=== PATIENT | male | born 1950 | race Caucasian/White ===

== ENCOUNTER → 2016-05-01 07:31 | Outpatient (CLI) | payer MEDICARE ==
[2010-03-08 07:22] VITALS: BMI 30.8
== END | disposition home or self-care (01) ==
LOC: D.CT 07:31
DX: R10.9 Unspecified abdominal pain (principal); R91.8 Other nonspecific abnormal finding of lung field; Z12.2 Encounter for screening for malignant neoplasm of respiratory organs

== ENCOUNTER → 2016-05-10 09:23 | Outpatient (CLI) | payer MEDICARE ==
[2010-03-08 07:22] VITALS: BMI 30.8
[2016-05-10 10:08] LABS: CREATININE - SERUM 1.1 mg/dL (0.6-1.3)
== END | disposition home or self-care (01) ==
LOC: D.CT 09:23
PROVIDERS: Family Medicine
DX: R93.5 Abnormal findings on diagnostic imaging of other abdominal regions, including retroperitoneum (principal)

== ENCOUNTER 2017-08-29 07:10 | Day surgery (SDC) | payer MEDICARE ==
[~2017-08-29] VITALS: Ht 162.6 cm; Wt 90.3 kg
--- NOTE | ~2017-08-29 | OP ---
PATIENT NAME: EMILIE YAN MEDICAL RECORD: [id number] :52 LOCATION:[facility] ADMISSION DATE: SURGEON: MELQUIADES HOPPER DO DATE OF OPERATION: 08/29/2017 PROCEDURE PERFORMED: Left endoscopic carpal tunnel release. PREOPERATIVE DIAGNOSIS: Left carpal tunnel syndrome. POSTOPERATIVE DIAGNOSIS: Left carpal tunnel syndrome. INDICATIONS: Ms. Hartman is a 67-year-old male who has had bilateral hand numbness for quite some time. He is tired of dealing with it. He had a nerve conduction study that showed a distal motor latency of 5.3 on the left and 5.1 on the right. He chose to go with the left one first. Due to him being a right-handed and want to drive. I informed him that this should take care of the pain, that wakes him up at night; however, it may not completely resolve the numbness and tingling, but should get better. He was okay with that and wanted to proceed forward with the procedure. I informed of the risks and benefits including nerve damage and nerve irritation through the surgery. SURGEON: Melquiades Hopper DO DESCRIPTION OF PROCEDURE: The patient was taken to the operative suite, laid in supine position, given general anesthetic and given 2 grams of Ancef preoperatively. The left upper extremity was prepped and draped in sterile fashion after general anesthetic, timeout was performed. Everyone was in agreement of correct side, site and patient. After this was done, the Esmarch was used to exsanguinate the left upper extremity with a tourniquet above the elbow under the drapes and tourniquet was inflated to 250 mmHg and it was deflated at 10 minutes. Once the tourniquet was inflated, the incision was marked out just over the palmaris longus tendon about a centimeter just proximal to the wrist crease and the skin was incised and blunt dissection was made with Ragnell down to the carpal tunnel itself. Once the carpal tunnel was identified, the distal forearm fascia was released under direct visualization with scissors and a pickup. Then, the dilators were used to make room for the sheath for the endoscopic carpal tunnel segway device once the sheath had been entered, the transverse carpal ligament was viewed, and was seen to be the only thing in view. The median nerve was protected by the sheath. Once this was seen, the rasp was used to clean off the transverse carpal ligament and then a probe, to probe and ensure there was nothing in the ligament and then the blade was brought in to transect the ligament. Once the ligament was transected, a fat herniated down into the carpal tunnel indicating a good release of the transverse carpal ligament. The sheath, the camera, and knife had all been removed and then a Ayla retractor was placed into the wound, opened up and the transverse carpal ligament was viewed and seen to be transected completely. This was seen with loupe magnification and the median nerve was intact. The tourniquet was then let down at 10 minutes and the bleeding was all coagulated with bipolar and the incision site was closed with 5-0 Monocryl with 2 inverted interrupted stitches under the skin. Steri-Strip was placed over the wound. Adaptic, 4 x 4 was then placed on the wound. The Kerlix was then wrapped and Coban was lightly wrapped on top of that. The patient was awakened and taken to recovery. Prior to the closure, a 10 mL of 0.5% Marcaine were used to anesthetize the surgical area. Blood loss was minimal. OPERATIVE REPORT [id number] EMILIE YAN COMPLICATIONS: None. TRANSINT:[id number] Voice Confirmation ID: [id number] DOCUMENT ID: [id number] MELQUIADES HOPPER DO at 1828 CC: [id number] DICTATION DATE: 08/29/17 1242 FAMILY SERVICE ASSISTANT: 08/29/17 1455 REG [facility] [address] [place] [address]
[~2017-08-29 07:10] MED LIST: MOBIC7.5 MG PO; PROBENECID500 MG PO
[2017-08-29 07:26] LABS: HEMATOCRIT 43.5 % (42.0-54.0); HEMOGLOBIN 14.6 g/dL (13.5-17.5); MCH 34.8 pg (26.0-34.0); MCHC 33.6 g/dL (31.0-37.0); MCV 103.8 fL (80.0-100.0); MEAN PLATELET VOLUME 8.7 fL (7.4-10.4); RBC 4.19 10x6/uL (4.20-6.10); WBC 6.9 10x3/uL (4.8-10.8)
[2017-08-29 08:32] VITALS: BP 146/75; Ht 162.6 cm; Wt 90.3 kg
[2017-08-29] MEDS ORDERED: DURICEF500 MG PO (12:35)
[2017-08-29] MEDS ORDERED: PERCOCET 5-3251 TAB PO (12:35)
== END 2017-08-29 14:30 | disposition home or self-care (01) ==
LOC: D.OPS 07:10 → D.PAN 09:50 → D.OPS 11:30 → D.PAN 11:30 → D.OPS 14:30
PROVIDERS: Anesthesiology
DX: G56.02 Carpal tunnel syndrome, left upper limb (principal); Z01.812 Encounter for preprocedural laboratory examination

== ENCOUNTER 2017-10-31 07:53 | Outpatient (CLI) | payer MEDICARE ==
[~2017-10-31] VITALS: Ht 162.6 cm; Wt 92.3 kg
--- NOTE | ~2017-10-31 | HEMODYNAMI ---
PATIENT:EMILIE YAN MEDICAL RECORD: [id number] : 52 LOCATION:[facility] ADMISSION DATE: 10/31/17 Generatedon:10/31/201710:44 Patient name: EMILIE YAN Patient #: [id number] SSN: : 1950 Date of study: 10/31/2017 Page: Of Hemodynamic Procedure Report Patient Data Patient Demographics Procedure consent was obtained First Name: EMILIE Gender: Male Last Name: YURIY : 1950 [facility] Initial: SANTANA Age: 67 year(s) Patient #: [id number] Race: Unknown Additional ID: [id number] Contact details [address]: [address] [place] [address] RO[address] State: [place] City: [place] Zip code: [address] Past Medical History Allergies Allergen Reaction Date Comments Reported Other allergy 10/31/2017 Admission Admission Data Admission Date: 10/31/2017 Admission Time: 7:53 Procedure Procedure Types Cath Procedure Diagnostic Procedure LHC LHC w/Coronaries FFR/IVUS Intra-Coronary IVUS Initial Intra-Coronary IVUS Additional Sedation Charges Moderate Sedation up to 15 minutes Procedure Description Procedure Date Procedure Date: 10/31/2017 Procedure Start Time: 10:22 Procedure End Time: 10:43 Procedure Staff Name Function Delon Anderson MD Performing Physician Ruchi Busby RT Monitor Carol Ann Clemons RT Scrub Sharon Nelson RN Nurse Procedure Data Cath Procedure Fluoroscopy Diagnostic fluoroscopy Total fluoroscopy Time: 6.5 time: 6.5 min min Diagnostic fluoroscopy Total fluoroscopy dose: dose: 1052 mGy 1052 mGy Contrast Material Contrast Material Type Amount (ml) Isovue 300 109 Entry Location Entry Primary Successful Side Size Upsize Upsize Entry Closure Simon ccessful Closure Location (Fr) 1 (Fr) 2 (Fr) Remarks Device Remarks Radial Right 6 Fr Mechanical tr artery Short Compression Estimated blood loss: 10 ml Diagnostic catheters Device Type Used For End Catheter Placement DIAGNOSTIC [place] 110cm 5 Procedure Fr catheter ([id number]) Procedure Complications No complications Procedure Medications Medication Administration Route Dosage Oxygen NC 2 l/min Lidocaine 2% added to field 20 Heparin Flush Bag added to field 2 bags (1000units/500ml NS) 0.9% NaCl I.V. 100 ml/hr Versed I.V. 2 mg Fentanyl I.V. 100 mcg Versed I.V. 1 mg Fentanyl I.V. 50 mcg Radial Cocktail I.A. 1 syringe (Verapomil 2mg/Nitro 400mcg/Heparin 1500units) Versed I.V. 1 mg Fentanyl I.V. 50 mcg Versed I.V. 1 mg Versed I.V. 1 mg Hemodynamics Rest Heart Rate: 60 (bpm) Snapshots Pre Cath Intra NCS Post Cath Vital Signs Time Heart Resp SPO2 etCO2 NIBP (mmHg) Rhythm Pain Sedation Rate (ipm) (%) (mmHg) Status Level (bpm) 10:05:36 59 20 97 33 Measuring NSR 0 (11) 10(A) , No pain 10:05:57 59 18 98 35.2 148/87(136) NSR 0 (11) 10(A) , No pain 10:10:09 61 15 93 32.2 145/86(106) NSR 0 (11) 10(A) , No pain 10:14:21 58 13 95 38.2 153/83(120) NSR 0 (11) 10(A) , No pain 10:18:35 57 12 95 36.8 150/90(103) NSR 0 (11) 10(A) , No pain 10:22:47 69 15 94 9.7 150/95(114) NSR 0 (11) 10(A) , No pain 10:27:01 64 12 92 41.3 137/83(130) NSR 0 (11) 9(A) , No pain 10:31:08 66 18 92 14.9 154/91(95) NSR 0 (11) 9(A) , No pain 10:35:22 81 12 94 9.7 159/85(112) NSR 0 (11) 9(A) , No pain 10:39:41 75 13 93 0 167/84(105) NSR 0 (11) 10(A) , No pain 10:44:03 78 15 95 0 167/82(116) NSR 0 (11) 10(A) , No pain Medications Time Medication Route Dose Verified Delivered Reason Notes Effectiveness by by 10:06:01 Oxygen NC 2 l/min Delon Buffie used for Monica Nelson RN procedure 10:06:10 Lidocaine 2% added 20ml Delon Delon for local to vial Monica Anderson MD anesthetic field 10:06:15 Heparin Flush added 2 bags Delon Jernigan used for Bag to Monica Anderson MD procedure (1000units/500ml field NS) 10:06:23 0.9% NaCl I.V. 100 Delon Buffie Per ml/hr Monica Nelson RN physician 10:19:22 Versed I.V. 2 mg Delon Buffie for sedation Monica Nelson RN 10:19:30 Fentanyl I.V. 100 mcg Delon Buffie for sedation Monica Nelson RN 10:24:42 Versed I.V. 1 mg Delon Buffie for sedation Monica Nelson RN 10:24:46 Fentanyl I.V. 50 mcg Delon Buffie for sedation Monica Nelson RN 10:24:53 Radial Cocktail I.A. 1 Delon Buffie for (Verapomil syringe Monica Nelson RN vasodilation 2mg/Nitro 400mcg/Heparin 1500units) 10:26:48 Versed I.V. 1 mg Delon Buffie for sedation Monica Nelson RN 10:26:51 Fentanyl I.V. 50 mcg Delon Buffie for sedation Monica Nelson RN 10:28:32 Versed I.V. 1 mg Delon Buffie for sedation Monica Nelson RN 10:35:44 Versed I.V. 1 mg Delon Buffie for sedation Monica Nelson RN Procedure Log Time Note 9:50:34 Diagnostic Cath Status : Elective 9:50:51 Carol Ann Clemons RT(R) sent for patient. Start room use. 9:50:52 Time tracking: Regular hours (M-F 7:00 - 5:00) 9:50:56 Plan of Care:Hemodynamics will remain stable., Cardiac rhythm will remain stable., Comfort level will be maintained., Respiratory function will remain adequate., Patient/ family verbilizes understanding of procedure., Procedure tolerated without complication., Recovers from procedure without complications.. 9:52:08 Patient received from Pre/Post Procedure Room to CCL 2 Alert and oriented. Tansferred to table in Supine position. 9:52:09 Warm blankets applied, and christina hugger turned on for patient comfort. 9:52:10 Correct patient and procedure confirmed by team. 9:52:11 Signed procedure consent form obtained from patient. 9:52:12 ECG and BP/O2 sat monitors applied to patient. 10:03:47 Vital chart was started 10:03:49 Baseline sample Acquired. 10:03:52 Full Disclosure recording started 10:04:23 H&P Date Dictated: 10/02/2017 Within 30 days and on chart., H&P Addendum completed by physician on day of procedure. (MUST COMPLETE FOR ALL OUTPATIENTS). 10:04:24 Pre-procedure instructions explained to patient. 10:04:26 Family in waiting room. 10:04:28 Patient NPO since Midnight. 10:04:39 Patient allergic to Other allergy 10:04:43 Is the patient allergic to Iodine/contrast media? No. 10:04:49 Was the patient premedicated? Yes 10:04:50 Is patient on blood thinner?No 10:04:52 Patient diabetic? No. 10:04:55 Previous problem with sedation/anesthesia? No ? 10:04:58 Snore? Yes 10:05:00 Sleep apnea? No 10:05:06 Dentures? Yes tight 10:05:10 Patient pain scale 0/10 ?. 10:05:17 IV patent on arrival in left forearm with 0.9% NaCl at KVO. 10:05:22 Lab results completed and on chart. 10:05:27 Right Radial & Right Groin area was prepped with chlora-prep and draped in sterile fashion 10:05:28 Alarms reviewed by R. N. 10:05:28 Sharps counted by scrub and verified by R.N. 10:05:29 Physician paged 10:05:48 Use device set Radial Dx or PCI 10:05:49 ACIST Syringe (99611) opened to sterile field. 10:05:50 Medline Cath Pack ([id number]) opened to sterile field. 10:05:50 Bag Decanter (2002) opened to sterile field. 10:05:51 DIAGNOSTIC WIRE .035 260cm J wire (062385) opened to sterile field. 10:05:52 Tegaderm 4 x 4 (1626W) opened to sterile field. 10:05:53 MBrace Wrist Support ([id number]) opened to sterile field. 10:05:54 NEEDLE Cook 21G 4cm Radial (Z05894) opened to sterile field. 10:05:59 SHEATH 6Fr Prelude Radial ([id number]) opened to sterile field. 10:06:01 Oxygen 2 l/min NC was administered by Sharon Nelson RN; used for procedure; 10:06:10 Lidocaine 2% 20ml vial added to field was administered by Delon Anderson MD; for local anesthetic; 10:06:15 Heparin Flush Bag (1000units/500ml NS) 2 bags added to field was administered by Delon Anderson MD; used for procedure; 10:06:23 0.9% NaCl 100 ml/hr I.V. was administered by Sharon Nelson RN; Per physician; 10:10:44 Zero performed for pressure channel P1 10:18:37 Physician arrived 10:18:38 --------ALL STOP TIME OUT------ 10:18:38 Final Timeout: patient, procedure, and site verified with staff and physician. All members of the team are in agreement. 10:18:40 Right Radial & Right Groin site verified by team. 10:18:47 Physical assessment completed. ASA score P 2 - A patient with mild systemic disease as per Delon Anderson MD. 10:19:22 Versed 2 mg I.V. was administered by Sharon Nelson RN; for sedation; 10:19:30 Fentanyl 100 mcg I.V. was administered by Sharon Nelson RN; for sedation; 10:22:45 Procedure started. 10:22:56 Local anesthetic to right radial artery with Lidocaine 2% by Delon Anderson MD.INITIAL ACCESS ONLY 10:23:07 A 6 Fr Short sheath was inserted into the Right Radial artery 10:24:19 A DIAGNOSTIC [place] 110cm 5 Fr catheter (450612) was advanced over the wire and used for Procedure. 10:24:42 Versed 1 mg I.V. was administered by Sharon Nelson RN; for sedation; 10:24:46 Fentanyl 50 mcg I.V. was administered by Sharon Nelson RN; for sedation; 10:24:53 Radial Cocktail (Verapomil 2mg/Nitro 400mcg/Heparin 1500units) 1 syringe I.A. was administered by Sharon Nelson RN; for vasodilation; 10:24:56 LV angiography performed. 10:25:27 EF : 55 % 10:26:02 LCA angiography performed. 10:26:26 RCA angiography performed. 10:26:48 Versed 1 mg I.V. was administered by Sharon Nelson RN; for sedation; 10:26:51 Fentanyl 50 mcg I.V. was administered by Sharon Nelson RN; for sedation; 10:27:25 Catheter removed. 10:27:27 Proceeding to intervention. 10:28:26 GUIDE 6FR AR 2.0 catheter ([id number]) opened to sterile field. 10:28:27 [place] Eag[place] IVUS Catheter (24192B) opened to sterile field. 10:28:27 INFLATOR Merit BasixCompak (KO2344) opened to sterile field. 10:28:32 Versed 1 mg I.V. was administered by Sharon Nelson RN; for sedation; 10:28:43 6 Fr AR2 guide catheter was inserted over the wire 10:31:00 Guide catheter removed. 10:33:56 GUIDE 6FR 3DRC catheter ([id number]) opened to sterile field. 10:33:59 CHOICE PT Extra Support 182cm wire ([id number]) opened to sterile field. 10:34:07 3DRC wire advanced. 10:34:45 Wire advanced across lesion. 10:35:44 Versed 1 mg I.V. was administered by Sharon Nelson RN; for sedation; 10:36:13 IVUS catheter removed over wire. 10:36:17 Wire removed. 10:36:18 Guide catheter removed. 10:36:58 GUIDE 6FR XBLAD 3.5 catheter (14234560) opened to sterile field. 10:37:27 6 Fr XBLAD guide catheter was inserted over the wire 10:37:31 Wire advanced across lesion. 10:40:52 Wire removed. 10:40:53 Guide catheter removed. 10:41:06 Sheath removed intact; hemostasis achieved with Mechanical Compression to the Right Radial artery. 10:41:15 TR BAND Large ([id number]) opened to sterile field. 10:41:19 Procedure ended.(Physican Out) 10:41:30 Fluoroscopy time 06.50 minutes. 10:41:35 Fluoroscopy dose: 1052 mGy 10:41:35 Flurop Dose total: 1052 10:41:43 Contrast amount:Isovue 300 109ml. 10:41:45 Sharps counted by scrub and verified by R.N. 10:41:47 TR band inflated with 12cc of air. 10:41:56 Post right radial artery:stable 10:41:57 Post Procedure Pulses reassessed and unchanged 10:42:00 Post-procedure physical assessment completed. ASA score P 2 - A patient with mild systemic disease as per Delon Anderson MD. 10:42:06 Post procedure rhythm: unchanged. 10:42:10 Estimated blood loss: 10 ml 10:42:13 Post procedure instruction explained to patient.Patient verbalizes understanding. 10:43:03 Procedure type changed to Cath procedure, Diagnostic procedure, LHC, LHC w/Coronaries, FFR/IVUS, Intra-Coronary IVUS Initial, Intra-Coronary IVUS Additional, Sedation Charges, Moderate Sedation up to 15 minutes 10:43:05 Procedure and supply charges have been captured, reviewed, submitted and are correct. 10:43:41 Procedure Complication : No complications 10:43:44 Vital chart was stopped 10:43:45 See physician's report for complete and final results. 10:43:47 Report given to Pre/Post Procedure Room. 10:43:51 Patient transfered to Pre/Post Procedure Room with Stretcher. 10:43:53 Procedure ended. 10:43:53 Full Disclosure recording stopped 10:43:56 End room use (Document Last) Device Usage Item Name Manufacture Quantity Catalog Number Hospital Part Current M inimal Lot# / Charge Number Stock Stock Serial# Code ACIST Syringe Acist 1 [id number] [id number] 437885 [id number] 2 0 (88048) Medical Systems Inc Medline Cath Cardinal 1 [id number] 558169 08905 481327 5 Pack Health ([id number]) Bag Decanter Microtek 1 2001S 757189 78005 817404 5 () Medical Inc. DIAGNOSTIC WIRE St Maik 1 390374 362630 812542 839349 3 0 .035 260cm J wire (507211) Tegaderm 4 x 4 3M 1 1626W 788841 040254 331340 5 (1626W) MBrace Wrist Advanced 1 140-0250-00 987601 95834 617090 5 Support Vascular (450083914) Dynamics NEEDLE Cook 21G Cook Medical 1 [id number] 437398 992972 636891 5 4cm Radial (Y68591) SHEATH 6Fr Merit 1 [id number] 871276 984783 293691 5 Prelude Radial Medical ([id number]) DIAGNOSTIC Terumo 1 40-5050 393822 707811 921194 5 [place] 110cm 5 Fr catheter (513004) GUIDE 6FR AR Medtronic 1 [id number] 190672 44639 825523 1 2.0 catheter ([id number]) [place] 1 42882W 981397 378895 689836 8 [place] Eagleye IVUS Catheter (48005N) INFLATOR Merit Merit 1 [id number] 348336 292440 756278 1 5 Curioos Medical ([id number]) GUIDE 6FR 3DRC Medtronic 1 [id number] 012612 555913 856366 1 catheter (SW94AIF) CHOICE PT Extra [place] 1 [id number] 262901 564649 168040 5 Support 182cm Scientific wire ([id number]) GUIDE 6FR XBLAD Cardinal 1 [id number] 255620 561005 431174 1 0 3.5 catheter Health (93842484) TR BAND Large Terumo 1 [id number] 239941 763571 325982 4 0 ([id number]) Signature Audit [place] Stage Time Signature Unsigned Intra-Procedure 10/31/2017 Ruchi Busby 10:44:32 AM RT(R) Signatures Monitor : Ruchi Busby Signature : RT Date : Time : [facility] [address] [place] [address]
--- NOTE | ~2017-10-31 | OP ---
PATIENT NAME: EMILIE YAN MEDICAL RECORD: [id number] :52 LOCATION:D.CAT ADMISSION DATE: SURGEON: CANDIE ALANIS MD DATE OF OPERATION: 10/31/2017 PROCEDURES: 1. Intravascular ultrasound RCA. 2. Intravascular ultrasound of the LAD. 3. Left heart catheterization. 4. Selective coronary angiography. 5. Left ventriculogram. INDICATION: Chest pain compatible with angina and coronary artery disease. PROCEDURE IN DETAIL: After informed consent was obtained and after a detailed description of the risks, benefits as well as alternative therapies, the patient elected to proceed with angiogram and heart catheterization. The right radial area was prepped and draped in normal sterile fashion. Right radial artery was cannulated via modified Seldinger technique with placement of 6-Serbian sheath. All catheters exchanged through this sheath. FINDINGS: Left ventriculogram was performed in standard 30-degree CLEMONS view, reveals good cardiac wall motion throughout all segments. Overall ejection fraction estimated 60%. SELECTIVE CORONARY ANGIOGRAPHY: 1. Left main is with no significant angiographic disease. 2. Left anterior descending has a questionable stenosis proximally; however, intravascular ultrasound reveals this is no greater than 20% to 30%. 3. Left circumflex has moderate irregularities, but no flow-limiting stenosis. 4. The right coronary artery has a questionable stenosis in the mid vessel; however, intravascular ultrasound reveals this is no greater than 20% to 30%. OVERALL IMPRESSION: Minimal coronary artery disease is present. No flow limiting stenosis, normal LV function. Chest pain is noncardiac in etiology. TRANSINT:[id number] Voice Confirmation ID: [id number] DOCUMENT ID: [id number] CANDIE ALANIS MD at 1949 CC: [id number] DICTATION DATE: 10/31/17 1043 CHRONIC DISEASE EPIDEMIOLOGIST: 10/31/17 1103 DEP CLI 10/31/17 [place] [address] [place] [address]
[~2017-10-31 07:53] MED LIST changes: +DURICEF500 MG PO; +PERCOCET 5-3251 TAB PO
[2017-10-31 08:22] VITALS: BP 143/78; Ht 162.6 cm; Wt 92.3 kg
[2017-10-31 08:39] LABS: HEMATOCRIT 42.3 % (42.0-54.0); LYMPHOCYTES 24.8 % (15-50); MCH 34.9 pg (26.0-34.0); MCHC 35.5 g/dL (31.0-37.0); MCV 98.4 fL (80.0-100.0); MEAN PLATELET VOLUME 8.6 fL (7.4-10.4); NEUTROPHILS 62.5 % (40-80); PLATELET COUNT 265 10x3/uL (130-400); RDW 13.7 % (11.5-14.5); WBC 6.4 10x3/uL (4.8-10.8)
[2017-10-31 08:47] LABS: CALCIUM 8.7 mg/dL (8.5-10.1); CARBON DIOXIDE 28.4 mmol/L (21.0-32.0); CREATININE - SERUM 1.2 mg/dL (0.6-1.3); POTASSIUM - SERUM 4.4 mmol/L (3.5-5.1)
== END 2017-10-31 12:55 | disposition home or self-care (01) ==
LOC: D.CATH 07:53
PROVIDERS: Internal Medicine Interventional Cardiology
DX: R07.89 Other chest pain (principal); I25.10 Atherosclerotic heart disease of native coronary artery without angina pectoris; Z01.812 Encounter for preprocedural laboratory examination

== ENCOUNTER 2017-12-26 10:57 | Day surgery (SDC) | payer MEDICARE ==
[~2017-12-26] VITALS: Ht 162.6 cm; Wt 90.7 kg
--- NOTE | ~2017-12-26 | OP ---
PATIENT NAME: MEILIE EWING MEDICAL RECORD: [id number] :52 LOCATION:[facility] ADMISSION DATE: SURGEON: KALYN HOPPER DO DATE OF OPERATION: 12/26/2017 PROCEDURE PERFORMED: Right endoscopic carpal tunnel release. PREOPERATIVE DIAGNOSIS: Severe carpal tunnel syndrome of the right wrist. POSTOPERATIVE DIAGNOSIS: Severe carpal tunnel syndrome of the right wrist. INDICATIONS: Mr. Ewing is a 67-year-old male who had bilateral hand numbness that has been going on for quite sometime. He had nerve conduction study done which showed bilateral carpal tunnel syndrome. He wanted the left done first, which was done few months ago; and then the right one he wanted done. He came and saw me in the office and said he was ready for it to be done. He stated the hand was awakening him up and giving him pain. I informed him of risks and benefits of the procedure including damage to nerves, vessels, need for further surgery, continued numbness due to severity of the compression of the nerve. He was okay with risks and benefits and consented to the procedure. SURGEON: Kalyn Hopper DO DESCRIPTION OF PROCEDURE: The patient was taken to the operative suite, laid in supine position, and given general anesthetic and 2 grams of Ancef preoperatively. The right upper extremity was prepped and draped in sterile fashion with tourniquet above the elbow under the drapes. Time-out was performed and everyone was in agreement with correct side, site, patient, and procedure. Once time-out was done, the right upper extremity was exsanguinated with an Esmarch and the tourniquet was inflated to 250 mmHg, which was up for 8 minutes. An incision was then drawn out on the wrist crease, about a centimeter in length. A #15 blade scalpel was used to incise the skin and then Ragnells were used to bluntly dissect down to the carpal tunnel itself. The forearm fascia was then released under direct loupe visualization with pickup and scissors, releasing it proximally and then the dilators were used to enter the carpal tunnel itself. The sheath of the SegWay device was put into the carpal tunnel, protecting the median nerve. The camera was then entered into the sheath, and on viewing it, only the transcarpal ligament was in view and the median nerve was protected. A rasp was then used to clean off the transverse carpal ligament and blade was brought in and raised up. The transverse carpal ligament was transected and then the sheath, camera, and knife were removed. The most proximal part of the transcarpal ligament was released under direct loupe visualization and then large end of the Ragnell was used to visually inspect the transcarpal ligament under loupe magnification to ensure that there were no fibers left and the fat herniated down into the carpal tunnel and this was indeed the case. The tourniquet was then let down at 8 minutes and 10 mL of 0.5% Marcaine with epinephrine was injected around the site. Two inverted interrupted stitches were put in with 5-0 Monocryl at the side and then Steri-Strips were placed on that. Adaptic, 4 x 4s, Kerlix, and Coban were lightly wrapped on the wrist. The patient was awakened and taken to recovery in stable condition. BLOOD LOSS: Minimal. COMPLICATIONS: None. OPERATIVE REPORT [id number] EMILIE EWING TRANSINT:[id number] Voice Confirmation ID: [id number] DOCUMENT ID: [id number] KALYN HOPPER DO at 1452 CC: [id number] DICTATION DATE: 12/26/17 1401 BRIDGE OPERATOR: 12/26/17 1428 REG [facility] [address] [place] [address]
[2017-12-26 11:18] LABS: HEMATOCRIT 43.8 % (42.0-54.0); HEMOGLOBIN 15.1 g/dL (13.5-17.5); MCH 35.3 pg (26.0-34.0); MCHC 34.5 g/dL (31.0-37.0); MCV 102.3 fL (80.0-100.0); MEAN PLATELET VOLUME 8.9 fL (7.4-10.4); RBC 4.28 10x6/uL (4.20-6.10); RDW 13.6 % (11.5-14.5); WBC 8.1 10x3/uL (4.8-10.8)
[2017-12-26 12:01] VITALS: BP 164/88; Ht 162.6 cm; Wt 90.7 kg
[2017-12-26] MEDS ORDERED: OXYCODONE-APAP1 T10 PO (14:03)
[2017-12-26] MEDS ORDERED: DURICEF500 MG PO (14:04)
== END 2017-12-26 16:00 | disposition home or self-care (01) ==
LOC: D.OPS 10:57 → D.PAN 12:15 → D.OPS 12:15 → D.PAN 13:00 → D.OPS 16:00
PROVIDERS: Anesthesiology
DX: G56.01 Carpal tunnel syndrome, right upper limb (principal); Z01.812 Encounter for preprocedural laboratory examination